=== PATIENT | male | born 1990 | race Caucasian/White ===

== ENCOUNTER 2018-08-12 10:53 | Emergency (ER) | payer MEDICAID ==
[~2018-08-12] VITALS: Ht 172.7 cm; Wt 98.0 kg
[2018-08-12] MEDS ORDERED: ONDANSETRON HCL 4MG/2ML INJ IM ONE (12:30)
[2018-08-12 13:15] VITALS: BP 106/65
== END 2018-08-12 13:30 | disposition home or self-care (01) ==
LOC: ER 10:53
DX: R11.2 Nausea with vomiting, unspecified (principal)
CPT/HCPCS: 96372; 99283; J2405; Z7610